=== PATIENT | female | born 1985 | race Caucasian/White ===

== ENCOUNTER 2017-10-17 06:55 | Emergency (ER) | payer OTHER ==
[2017-10-17 07:01] VITALS: BP 114/79; PULSE 79; RESP 18; TEMP 98.1; O2SAT 96
--- NOTE | 2017-10-17 07:05 | EDPHY ---
H & P Stated Complaint: nontraumatic neck pain Time Seen by Provider: 10/17/17 07:05 HPI/ROS: CHIEF COMPLAINT: Neck pain HISTORY OF PRESENT ILLNESS: The patient presents to the ED with complaints of posterior neck pain for the past day. She woke up with the symptoms. They are primarily in the right trapezius muscle. She denies any history of fall or trauma. The patient denies weakness in her arms or legs. She denies any bowel or bladder dysfunction. She denies prior history of neck surgery. She has no complaints of fever. She denies IV drug use. She denies additional complaints. Her symptoms are worsened with movement and are moderate in nature. REVIEW OF SYSTEMS: A comprehensive 10 point review of systems is otherwise negative aside from elements mentioned in the history of present illness. Source: Patient Exam Limitations: No limitations - Personal History LMP (Females 10-55): 22-28 Days Ago Current Tetanus/Diphtheria Vaccine: No - Medical/Surgical History Hx Asthma: No Hx Chronic Respiratory Disease: No Hx Diabetes: No Hx Cardiac Disease: No Hx Renal Disease: No Hx Cirrhosis: No Hx Alcoholism: No Hx HIV/AIDS: No Hx Splenectomy or Spleen Trauma: No Other PMH: denies - Social History Smoking Status: Never smoked - Physical Exam Exam: General Appearance: Alert, no distress Eyes: Pupils equal and round no pallor or injection ENT, Mouth: Mucous membranes moist Respiratory: There are no retractions, lungs are clear to auscultation Cardiovascular: Regular rate and rhythm Gastrointestinal: Abdomen is soft and nontender, no masses, bowel sounds normal Neurological: 5/5 strength noted all 4 extremities, sensation intact Skin: Warm and dry, no rashes Musculoskeletal: Tenderness to palpation in the right trapezius muscle Extremities: symmetrical, full range of motion Constitutional: Initial Vital Signs Temperature (C) 36.7 C 10/17/17 06:59 Heart Rate 79 10/17/17 06:59 Respiratory Rate 18 10/17/17 06:59 Blood Pressure 114/79 10/17/17 06:59 O2 Sat (%) 96 10/17/17 06:59 O2 Delivery Mode Room Air Allergies/Adverse Reactions: guinea pigs and rabbits Allergy (Mild, Uncoded 10/17/17 06:57) cough Home Medications: Medication Instructions Recorded Conrtol Pill 1 PO DAILY 05/14/11 Sertraline HCl [Zoloft] 25 mg PO DAILY 05/14/11 Cyclobenzaprine [Flexeril 10 MG 10 mg PO TID PRN #15 tab 10/17/17 (*)] Medical Decision Making ED Course/Re-evaluation: The patient presents to the ED with a myofascial strain involving the trapezius muscle. She is neurologically intact. She has no red flag warnings for neck pain. The patient will be advised to use nonsteroidal anti-inflammatories. She is given a prescription for muscle relaxant. Differential Diagnosis: Differential diagnosis considered includes cervical strain, torticollis, cervical disc herniation Departure - Departure Disposition: Home, Routine, Self-Care Clinical Impression: Cervical strain, acute Condition: Good Instructions: Cervical Strain (ED) Additional Instructions: 1. Take Ibuprofen or Motrin 600 mg by mouth three times a day. 2. Flexeril as needed for muscle relaxation 3. Return to the ED for markedly worsening pain, fever, weakness, bowel or bladder dysfunction or other concerns. 4. Please contact your primary care provider at [facility] for any ongoing symptoms.
== END 2017-10-17 07:28 | disposition home or self-care (01) ==
DX: S16.1XXA Strain of muscle, fascia and tendon at neck level, initial encounter (principal); X58.XXXA Exposure to other specified factors, initial encounter